=== PATIENT | female | born 1985 | race Caucasian/White ===

== ENCOUNTER 2020-07-11 09:34 | Outpatient (REF) | payer OTHER, SELFPAY | END 2020-07-11 09:35 | disposition home or self-care (01) | LOC: HO.LAB 09:34 | PROVIDERS: Visit Provider Internal Medicine | DX: Z20.828 Contact with and (suspected) exposure to other viral communicable diseases (principal) | CPT/HCPCS: C9803; U0003 ==

== ENCOUNTER 2020-09-09 07:43 | Outpatient (REF) | payer OTHER, SELFPAY | END 2020-09-09 07:44 | disposition home or self-care (01) | LOC: HO.LAB 07:43 | PROVIDERS: Visit Provider Internal Medicine | DX: Z20.822 Contact with and (suspected) exposure to COVID-19 (principal) | CPT/HCPCS: 36415; C9803; U0003; U0005 ==

== ENCOUNTER 2021-06-30 08:43 | Outpatient (REF) | payer OTHER, SELFPAY | END 2021-06-30 08:44 | disposition home or self-care (01) | LOC: HO.LAB 08:43 | PROVIDERS: Visit Provider Internal Medicine | DX: Z20.822 Contact with and (suspected) exposure to COVID-19 (principal) | CPT/HCPCS: C9803; U0003; U0005 ==